=== PATIENT | male | born 1950 | race Asian ===

== ENCOUNTER 2019-07-28 14:15 | IRF | payer OTHER, SELFPAY ==
[2019-07-28 14:15] VITALS: BP 141/58; PULSE 76; RESP 20; TEMP 36.6; O2SAT 100; BMI 29.0
--- NOTE | 2019-07-28 14:50 | ADMGEN ---
This patient, Conrad Rondon, was admitted to [facility] Room 218-01. Patient/family oriented to hospital policies and general routines including ID bracelet, bed and alarms, visiting hours, pain management, procedures, bathroom and other care routines, personal items, smoking policy, room service/diet, and visiting hours. Valuables list has been completed. Information on how to activate the Rapid Response Team has been discussed. Patient/Family are encouraged to report perceived risks to care and to ask questions if they do not understand what they are told or what they should do.
[2019-07-28 16:46] LABS: Glucose Point of Care 126 (65-105)
[2019-07-28 17:11] VITALS: BMI 29.0
[2019-07-28] MEDS: GABAPENTIN 100 MG CAPSULE PO (19:38)
[2019-07-28] MEDS: levETIRAcetam 500 MG TABLET 1000 MG PO (19:38)
[2019-07-28] MEDS: DOCUSATE SODIUM 100 MG CAPSULE PO (19:38)
[2019-07-28 20:00] VITALS: PULSE 76; RESP 20; O2SAT 100
[2019-07-28] MEDS: FAMOTIDINE 20 MG TABLET PO (21:15)
[2019-07-28] MEDS: HEPARIN SODIUM 5,000 UNITS/ML VIAL 5000 UNITS SUB-Q (21:18)
[2019-07-28] MEDS: DEXAMETHASONE 2 MG TABLET PO (21:20)
[2019-07-28 22:00] VITALS: BP 156/80; PULSE 72; RESP 18; TEMP 36.2; O2SAT 99
[2019-07-28 22:21] LABS: Glucose Point of Care 267 (65-105)
[2019-07-28 23:10] VITALS: TEMP 36.2
[2019-07-28] MEDS: ACETAMINOPHEN 325 MG TABLET 650 MG PO (23:10)
--- NOTE | 2019-07-29 03:57 | PC.NURSE ---
Patient has been awake all night. states he cannot sleep. gets up and sits in chair, then goes back to bed, then up again in the chair and then he wants to walk and we walk in the hallway. patient walked from his room all the way to room 224 and walked back to his room in 218. states just can not sleep. right now he is up in the chair again and has call light at his side. states he has called his and asked her to bring coffee before 0600. will continue to monitor.
[2019-07-29 05:17] LABS: Hematocrit 31.3 % (42.0-52.0); Mean Corpuscular HGB Conc 31.9 g/dl (32-36); Mean Corpuscular Hemoglobin 25.8 pg (26-34); Mean Corpuscular Volume 80.9 fl (80-100); Mean Platelet Volume 9.3 fl (7.4-10.4); Platelet Count Result 483 k/mm3 (150-375); Red Blood Count 3.87 M/mm3 (4.6-6.20); Red Cell Distribution Width 14.8 % (11.5-14.5); White Blood Count 7.9 K/mm3 (4.5-10.0)
[2019-07-29 05:23] LABS: Hemoglobin A1C 7.5 % (<5.7)
[2019-07-29 05:29] LABS: Blood Urea Nitrogen 18 mg/dL (9-20); Calcium 8.9 mg/dL (8.4-10.2); Carbon Dioxide 28 mmol/L (22-30); Chloride 102 mmol/L (98-107); Estimated CRCL calculation 54 ml/min; Estimated Glomerular Filt Rate > 60; Glucose 148 mg/dL (75-110); Potassium 4.4 mmol/L (3.4-5.0); Sodium 136 mmol/L (137-145)
[2019-07-29 05:56] LABS: Band Neutrophils Percent 3 % (0-6); Lymphocytes Absolute Manual 1.42 K/mm3 (1.1-4.5); Monocytes Absolute Manual 0.63 K/mm3 (0.1-0.90); Monocytes Percent Manual 8 % (3-9); Neutrophils Absolute Manual 5.84 K/mm3 (1.3-6.7); Neutrophils Percent Manual 71 % (46-73); Nucleated Red Blood Cells 2 %; Total Cells Counted 100
[2019-07-29 05:57] LABS: Hypochromasia 1+ (NORMAL); Large Platelets Present; Platelet Estimate Adequate (Adequate)
[2019-07-29 05:58] LABS: Microcytosis 1+ (NORMAL)
[2019-07-29 06:00] VITALS: BP 150/76; PULSE 76; RESP 18; TEMP 36.5; O2SAT 100
[2019-07-29] MEDS: DEXAMETHASONE 2 MG TABLET PO ×3 (06:55→21:13)
[2019-07-29 07:35] LABS: Glucose Point of Care 133 (65-105)
[2019-07-29] MEDS: INSULIN ASPART (*BKC) 100 UNITS/ML SUB-Q ×4 (08:59→17:20)
[2019-07-29] MEDS: INSULIN HUMAN NPH (*BKC) 100 UNITS/ML 15 UNITS SUB-Q ×2 (09:02→17:19)
[2019-07-29] MEDS: DOCUSATE SODIUM 100 MG CAPSULE PO ×2 (09:04→17:18)
[2019-07-29] MEDS: FAMOTIDINE 20 MG TABLET PO ×2 (09:05→21:14)
[2019-07-29] MEDS: HEPARIN SODIUM 5,000 UNITS/ML VIAL 5000 UNITS SUB-Q ×2 (09:05→21:12)
[2019-07-29] MEDS: GABAPENTIN 100 MG CAPSULE PO ×3 (09:05→17:18)
[2019-07-29] MEDS: levETIRAcetam 500 MG TABLET 1000 MG PO ×2 (09:05→17:21)
[2019-07-29] MEDS: ROSUVASTATIN 5 MG TABLET PO (09:06)
[2019-07-29] MEDS: SPIRONOLACTONE 25 MG TABLET PO (09:06)
[2019-07-29] MEDS: polyethylene glycoL 3350 17 GM POWD.PACK PO (09:06)
[2019-07-29] MEDS: lisinopriL 20 MG TABLET PO (09:06)
--- NOTE | 2019-07-29 09:30 | WPDREHABHP ---
H&P: HPI History of Present Illness Chief complaint: Brain mass Narrative: Conrad Rondon is a 69 year old maleHISTORY OF PRESENT ILLNESS: The patient's primary rehab impairment category is brain dysfunction/ nontraumatic The etiologic diagnosis is right frontal extra-axial mass with brain compression and cerebral edema I saw this patient [id number] on of July 29, 2019 at 9:30 a.m. The patient is a 68-year-old right-handed white male with a past medical history of for retention, hyperlipidemia and diabetes mellitus type 2 who presented to [facility] why EMS on July 20, 2019 with altered mental status and progressive left-sided weakness. On the night of the July 18, 2021 OT the patient had an episode of urinary incontinence in bed around midnight. His family moved him to the couch and upon waking in the morning he was unable to get up due to the weakness on his left side. They called EMS and he was taken to [facility]. He received 10 milligram of dexamethasone IV in the emergency department with no significant improvement. CT of the head demonstrated 6 x 4 centimeter right frontal mass with surrounding vasogenic edema and 1.7 centimeter midline shift. Non he was transferred to [facility] for neurosurgery consultation. He was admitted to the Neurosurgery service and it continued and dexamethasone every 4 hours 4 milligram patient was also started on Keppra which he is receiving at 1 gram b.i.d. for seizure prophylaxis a CT of the chest/ abdomen pelvis was obtained for staging but there were no findings malignancy. Patient required sedation and intubation for her brain tumor protocol MRI to evaluate the mass. It was a difficult intubation and was transferred to neuro ICU following the MRI for extubation prevent he was successfully extubated to 2 liters of nasal cannula oxygen. Neurosurgery saw the patient recommended surgical intervention. MRI of the brain revealed right frontal convexity extra-axial mass with areas of central necrosis, most consistent with meningioma. He underwent a craniotomy with nearly across resection on July 23, [address] Toby urena. Postoperatively he was monitored in the ICU. He has experienced acute blood-loss anemia, swelling at the craniotomy site extending to his right eye, hypertension and hypocalcemia. The patient is hemodynamically stable his incision was covered with a dressing and head wrap was placed along with elevation of the head of bed to reduce swelling. His hypertension is being controlled with oral medication and being monitored. Electrolytes are repeated or repeated as necessary Therapy was initiated at the acute care facility and the patient transferred to us from [facility] on July 28, 2019 on FALLS OR SURGERIES: The patient has had no major surgeries in the 100 days prior to admission. They had falls in the past year. They had falls with injury in the past year. PAST MEDICAL HISTORY: hypertension hyperlipidemia type 2 diabetes mellitus. PAST SURGICAL HISTORY: None except the present 1 SOCIAL HISTORY: patient lives with his , daughter and grandchildren in a 1 level home with the basement. The 3 steps to enter. Patient has a daughter who reported that he was independent prior. His is available to the patient 24 hour 7 read daughter works but makes her self available as necessary. Patient's primary language is laosion. He and stents most angulation was able to answer the questions from the is filter screen cleaner freed his and daughter planned to alternate and stay with him different rehab [place] his daughter is available from translation by phone if necessary. He has been participating with the rehab acute care side without need of a electronic test technician. He reported falls prior to admission he has had major surgery this admission treated he is a former smoker however no alcohol or drug use FAMILY HISTORY: ther
[2019-07-29 11:14] VITALS: BMI 29.0
[2019-07-29 11:49] LABS: Glucose Point of Care 226 (65-105)
[2019-07-29 14:00] VITALS: BP 141/57; PULSE 76; RESP 20; TEMP 36.5; O2SAT 99
[2019-07-29 17:01] LABS: Glucose Point of Care 115 (65-105)
--- NOTE | 2019-07-29 19:52 | PC.NURSE ---
Late entry: Called daughter Елена this morning regarding her father being restless and trying to get up on own during the night and also turning off the bed alarm. Asked if she could have a talk with him and she agreed, as well as the staff explaining his safety being priority to us. He stated understanding and as well as the daughter. He did well during the day using the call light appropriately, and we also moved him closer to the nurses station for his safety. Family aware and agreeable. Will continue to monitor.
[2019-07-29 21:11] LABS: Glucose Point of Care 136 (65-105)
[2019-07-29 22:00] VITALS: BP 133/69; PULSE 67; RESP 18; TEMP 36.6; O2SAT 99
[2019-07-29] MEDS: ACETAMINOPHEN 325 MG TABLET 650 MG PO (23:17)
[2019-07-30 02:01] LABS: Glucose Point of Care 141 (65-105)
[2019-07-30 06:00] VITALS: BP 129/77; PULSE 66; RESP 16; TEMP 35.7; O2SAT 98
[2019-07-30] MEDS: DEXAMETHASONE 2 MG TABLET PO ×3 (06:27→21:13)
[2019-07-30 06:45] LABS: Glucose Point of Care 129 (65-105)
[2019-07-30] MEDS: lisinopriL 20 MG TABLET PO (08:22)
[2019-07-30] MEDS: SPIRONOLACTONE 25 MG TABLET PO (08:22)
[2019-07-30] MEDS: levETIRAcetam 500 MG TABLET 1000 MG PO ×2 (08:22→17:16)
[2019-07-30] MEDS: GABAPENTIN 100 MG CAPSULE PO ×3 (08:22→17:16)
[2019-07-30] MEDS: FAMOTIDINE 20 MG TABLET PO ×2 (08:22→21:13)
[2019-07-30] MEDS: INSULIN HUMAN NPH (*BKC) 100 UNITS/ML 15 UNITS SUB-Q ×2 (08:22→17:16)
[2019-07-30] MEDS: ROSUVASTATIN 5 MG TABLET PO (08:22)
[2019-07-30] MEDS: polyethylene glycoL 3350 17 GM POWD.PACK PO (08:22)
[2019-07-30] MEDS: DOCUSATE SODIUM 100 MG CAPSULE PO ×2 (08:22→17:16)
[2019-07-30] MEDS: HEPARIN SODIUM 5,000 UNITS/ML VIAL 5000 UNITS SUB-Q ×2 (08:23→21:13)
[2019-07-30] MEDS: INSULIN ASPART (*BKC) 100 UNITS/ML SUB-Q ×3 (08:23→17:16)
[2019-07-30 11:45] LABS: Glucose Point of Care 128 (65-105)
--- NOTE | 2019-07-30 12:10 | RPD ---
INDIVIDUALIZED PLAN OF CARE FOR Conrad Rondon Brief Synthesis of Pre-Admission Screen, Post-Admission Evaluation and Therapy Evaluations: The patient presents to rehab with right frontal extra-axial mass with brain compression and cerebral edema. Comorbidities include status post right fronto-temporal craniotomy with biopsy and resection of a large underlying meningioma, acute postoperative pain, acute blood loss anemia, hypertension, diabetes mellitus with hyperglycemia, hypocalcemia. The patient requires physician services for neurology services, medical oversight, and coordination of care. Emotional needs will be monitored as depression is a common sequelae of stroke. The patient needs physician monitoring and treatment of anemia, perioperative blood loss, monitoring for adverse reactions to new medications, monitoring of infection, hypertension, and electrolyte imbalances. The patient requires nursing services for frequent neuro checks, anticoagulation therapy, medication management and education, pressure relief and skin care management, monitoring of labs, bowel and bladder training, diabetes management and education, and fall/safety precautions. Deficits include:ADLs, Balance, Cognition, Endurance, Mobility, ROM, Safety, Strength, Transfers Fire Sprinkler Inspector/Case Management for: Discharge Planning and Patient/Family Counseling Physical Therapy: 5 days per week for 90 minutes. Treatments may include: Therapeutic Exercise, Gait Training, Neuromuscular Re-education, Transfer Training, Community Reintegration, Bed Mobility, Patient/Family Education, Wheelchair Mobility Group Therapy/Concurrent Therapy Rationales: -Improve attention span during functional activities in a distracted environment. -Enhance problem solving and/or adequate judgment skills during functional activities in a distracted environment. -Promote increased safety awareness in a distracted environment to reduce fall risk with functional tasks, transfers, and ambulation to allow a more safe, self-sufficient return to the home environment. -Improve dynamic balance skills to promote safety and independence with functional activities in a distracted environment for maximum gain. Occupational Therapy: 5 days per week for 90 minutes. Treatments may include: Therapeutic Exercise, Therapeutic Activity, Cognitive Training, Self-Care Transfer Training, Community Reintegration, Home Management, Patient/Family Education, Wheelchair Mobility Training, Energy Conservation Training Group Therapy/Concurrent Therapy Rationales: -Allow therapist to observe and teach generalization and carry-over of skills learned in individual therapy. -Enhance problem solving and sequencing skills during therapeutic activities in a distracted environment. -Promote increased safety awareness in a realistic setting to reduce fall risk with functional tasks due to visual and verbal distractions. -Increase functional level with ADLs, ADL transfers and use of adaptive equipment through therapeutic activities with others while promoting safety to allow a more safe, self-sufficient return home. Medical Prognosis: Good Anticipated Length of Stay: 12 days Rehab Goals: Eating Goal: 06-Independent Oral Hygiene Goal: 06-Independent Toileting Hygiene Goal: 06-Independent Shower/Bathe Self Goal: 04-Supervision or Touching Assistance Upper Body Dressing Goal: 06-Independent Lower Body Dressing Goal: 06-Independent Putting On/Taking Off Footwear Goal: 06-Independent Rolling Left and Right Goal: 06-Independent Sit to Lying Goal: 06-Independent Lying to Sitting on Side of Bed Goal: 06-Independent Sit to Stand Goal: 06-Independent Chair/[id number] Transfer Goal: 06-Independent Toilet Transfer Goal: 06-Independent Car Transfer Goal: 06-Independent Walk 10' Goal: 06-Independent Walk 50' with Two Turns Goal: 06-Independent Walk 150' Goal: 06-Independent Walk 10' on Uneven Surface Goal: 06-Independent 1 Step (Curb) Go
[2019-07-30 14:00] VITALS: BP 100/54; PULSE 76; RESP 20; TEMP 36.5; O2SAT 100
[2019-07-30 17:01] LABS: Glucose Point of Care 163 (65-105)
[2019-07-30 20:49] VITALS: BP 118/72; PULSE 74; RESP 18; TEMP 36.8; O2SAT 98
[2019-07-30 21:13] LABS: Glucose Point of Care 192 (65-105)
[2019-07-31] MEDS: DEXAMETHASONE 2 MG TABLET PO ×3 (05:38→21:11)
[2019-07-31] MEDS: ACETAMINOPHEN 325 MG TABLET 650 MG PO (05:39)
[2019-07-31 06:00] VITALS: BP 131/65; PULSE 66; RESP 16; TEMP 36.3; O2SAT 98
[2019-07-31 06:59] LABS: Glucose Point of Care 142 (65-105)
[2019-07-31] MEDS: INSULIN ASPART (*BKC) 100 UNITS/ML SUB-Q ×2 (09:23→17:36)
[2019-07-31] MEDS: FAMOTIDINE 20 MG TABLET PO ×2 (09:29→21:11)
[2019-07-31] MEDS: HEPARIN SODIUM 5,000 UNITS/ML VIAL 5000 UNITS SUB-Q ×2 (09:29→21:11)
[2019-07-31] MEDS: levETIRAcetam 500 MG TABLET 1000 MG PO ×2 (09:29→17:27)
[2019-07-31] MEDS: DOCUSATE SODIUM 100 MG CAPSULE PO ×2 (09:29→17:27)
[2019-07-31] MEDS: GABAPENTIN 100 MG CAPSULE PO ×3 (09:29→21:11)
[2019-07-31] MEDS: INSULIN HUMAN NPH (*BKC) 100 UNITS/ML 15 UNITS SUB-Q ×2 (09:30→17:34)
[2019-07-31] MEDS: ROSUVASTATIN 5 MG TABLET PO (09:30)
[2019-07-31] MEDS: SPIRONOLACTONE 25 MG TABLET PO (09:30)
[2019-07-31] MEDS: lisinopriL 20 MG TABLET PO (09:30)
--- NOTE | 2019-07-31 12:08 | WPDNEURORHBP ---
Subjective Date/time seen: 07/31/19 12:08 Review of Systems Review of Systems: All systems reviewed & are unremarkable except as noted in HPI and below Functional Status Ambulation Ability Ability to Ambulate 10 Feet: Standby Assistance Ability to Ambulate 50 Feet With 2 Turns: Contact Guard Ability to Ambulate 150 Feet: Contact Guard Ambulation Assistive Devices: Walker, Wheeled Transfers Ability Ability to Transfer In/Out of Chair: Standby Assistance Exam Const: General: cooperative and no acute distress Nutritional Appearance: average body habitus Orientation/consciousness: oriented to person and oriented to place Eyes: General: appearance normal, both eyes and all related structures Alignment and Position: alignment normal Periorbital: periorbital findings normal Eyelids: eyelids normal Sclera: sclerae normal Cornea: corneas normal Pupils: Equal, round and reactive pupils present EOM: EOMs intact bilaterally Direct Ophthalmoscopy: normal light reflex Neck: Neck: full ROM Cardio: Rate: regular rate Rhythm: regular rhythm Neuro: General: oriented to person, oriented to place, oriented to time, moves all extremities and no focal motor deficits (left sided deficit) Cranial nerves: Yes Equal, round and reactive pupils present, Yes Nystagmus not present, Yes Midline tongue present, Yes Normal gag reflex present, Yes Symmetric palate elevation present, Yes Ability to bilaterally rotate head present and Yes Ability to bilaterally elevate shoulders present Speech: normal speech (slow) Motor exam (neuro): 5/5 motor strength present throughout (left hemiparesis) Deep tendon reflexes (DTR's): Right triceps reflex intensity grade: 1+, Left triceps reflex intensity grade: 2+, Rt Biceps (C5, C6): 1+, Left biceps reflex intensity grade: 2+, Right brachioradialis reflex intensity grade: 1+, Left brachioradialis reflex intensity grade: 2+, Right patellar reflex intensity grade: 1+, Left patellar reflex intensity grade: 2+, Right ankle reflex intensity grade: 1+ and Left ankle reflex intensity grade: 2+ Plantar Reflex Responses: downgoing: right and upgoing (positive Babinski): left Romberg Test: Positive Psych: Appearance: grossly normal Objective Data Vital Signs Vital Signs: Vital Signs - 24 hr 07/30/19 14:00 07/30/19 20:49 07/31/19 06:00 Temperature 36.5 C 36.8 C 36.3 C L Pulse Rate 76 74 66 Respiratory Rate 20 18 16 Blood Pressure 100/54 L 118/72 131/65 Pulse Oximetry 100 98 98 Intake/Output Intake/Output: Intake & Output 07/28/19 07/29/19 07/30/19 07/31/19 23:59 23:59 23:59 23:59 Intake Total 240 960 840 400 Balance 240 960 840 400 Meds/Results Medications: Active Medications Generic Name Dose Route Start Last Admin Trade Name Freq PRN Reason Stop Dose Admin Acetaminophen 650 mg 07/28/19 18:04 07/31/19 05:39 Tylenol Tablet PO 650 mg PRN PRN Administration Pain Hydrocodone Bitart/Acetaminophen 1 tab 07/30/19 01:53 07/30/19 22:23 [place] 5-325 Mg PO 1 tab Q4H PRN Administration Pain Rated 4-6 Bisacodyl 10 mg 07/28/19 18:04 Dulcolax Tab PO DAILY PRN Constipation Bisacodyl 10 mg 07/28/19 18:04 Dulcolax Suppository RECTAL DAILY PRN Constipation Dexamethasone 2 mg 07/28/19 22:00 07/31/19 05:38 Dexamethasone Po PO 07/31/19 14:01 2 mg Q8HR LINDA Administration Dexamethasone 2 mg 07/31/19 22:00 Dexamethasone Po PO 08/03/19 10:01 Q12H LINDA Dexamethasone 2 mg 08/04/19 09:00 Dexamethasone Po PO 08/06/19 09:01 Q24H LINDA Dexamethasone 1 mg 08/07/19 09:00 Dexamethasone Po PO 08/09/19 09:01 DAILY LINDA Dextrose 12.5 gm 07/28/19 18:03 Dextrose 50% Syringe IV PUSH PRN PRN Hypoglycemia Protocol Docusate Sodium 100 mg 07/28/19 17:00 07/31/19 09:29 Colace Capsule PO 100 mg BID LINDA Administration Famotidine 20 mg 07/28/19 21:00 07/31/19 09:29 Pepcid PO 20 mg Q12
[2019-07-31 12:32] LABS: Glucose Point of Care 109 (65-105)
[2019-07-31 14:00] VITALS: BP 123/69; PULSE 82; RESP 20; TEMP 36.7; O2SAT 98
[2019-07-31] MEDS: polyethylene glycoL 3350 17 GM POWD.PACK PO (17:27)
[2019-07-31 17:37] LABS: Glucose Point of Care 164 (65-105)
[2019-07-31 21:21] LABS: Glucose Point of Care 227 (65-105)
[2019-07-31 22:00] VITALS: BP 103/45; PULSE 118; RESP 16; TEMP 36.7; O2SAT 94
[2019-08-01 06:00] VITALS: BP 119/71; PULSE 63; RESP 16; TEMP 36.1; O2SAT 100
[2019-08-01 06:58] LABS: Glucose Point of Care 165 (65-105)
[2019-08-01] MEDS: GABAPENTIN 100 MG CAPSULE PO ×3 (09:12→17:59)
[2019-08-01] MEDS: INSULIN ASPART (*BKC) 100 UNITS/ML SUB-Q ×3 (09:12→18:00)
[2019-08-01] MEDS: HEPARIN SODIUM 5,000 UNITS/ML VIAL 5000 UNITS SUB-Q ×2 (09:12→21:02)
[2019-08-01] MEDS: FAMOTIDINE 20 MG TABLET PO ×2 (09:12→21:02)
[2019-08-01] MEDS: DOCUSATE SODIUM 100 MG CAPSULE PO ×2 (09:12→17:58)
[2019-08-01] MEDS: INSULIN HUMAN NPH (*BKC) 100 UNITS/ML 15 UNITS SUB-Q ×2 (09:13→17:59)
[2019-08-01] MEDS: levETIRAcetam 500 MG TABLET 1000 MG PO ×2 (09:13→17:59)
[2019-08-01] MEDS: lisinopriL 20 MG TABLET PO (09:13)
[2019-08-01] MEDS: polyethylene glycoL 3350 17 GM POWD.PACK PO (09:15)
[2019-08-01] MEDS: SPIRONOLACTONE 25 MG TABLET PO (09:16)
[2019-08-01] MEDS: ROSUVASTATIN 5 MG TABLET PO (09:16)
[2019-08-01] MEDS: DEXAMETHASONE 2 MG TABLET PO ×3 (09:16→21:11)
--- NOTE | 2019-08-01 12:03 | WPDNEURORHBP ---
Subjective Date/time seen: 08/01/19 12:03 Review of Systems Review of Systems: All systems reviewed & are unremarkable except as noted in HPI and below Functional Status Ambulation Ability Ability to Ambulate 10 Feet: Standby Assistance Ability to Ambulate 50 Feet With 2 Turns: Standby Assistance Ability to Ambulate 150 Feet: Standby Assistance Ambulation Assistive Devices: Cane Transfers Ability Ability to Transfer In/Out of Chair: Standby Assistance Exam Const: General: cooperative, comfortable and no acute distress Nutritional Appearance: average body habitus Orientation/consciousness: patient oriented x3 Eyes: General: appearance normal, both eyes and all related structures Alignment and Position: alignment normal Periorbital: periorbital findings normal Eyelids: eyelids normal Conjunctivae: conjunctivae normal Sclera: sclerae normal Cornea: corneas normal Pupils: Equal, round and reactive pupils present EOM: EOMs intact bilaterally Direct Ophthalmoscopy: normal light reflex Neck: Neck: full ROM and no lymphadenopathy Resp: Effort & Inspection: normal respiratory effort Auscultation: clear to auscultation bilaterally Cardio: Rate: regular rate Rhythm: regular rhythm Skin: General skin exam: no rashes or lesions noted Neuro: General: patient oriented x3 and moves all extremities Cranial nerves: Yes Nystagmus not present, Yes Midline tongue present, Yes Symmetric palate elevation present and Yes Ability to bilaterally rotate head present Cognition (Neuro): normal cognition Speech: normal speech Gait exam (Neuro): Spastic hemiparesis gait present (hemiparetic) Deep tendon reflexes (DTR's): Right triceps reflex intensity grade: 1+, Left triceps reflex intensity grade: 2+, Rt Biceps (C5, C6): 1+, Left biceps reflex intensity grade: 2+, Right brachioradialis reflex intensity grade: 1+, Left brachioradialis reflex intensity grade: 2+, Right patellar reflex intensity grade: 1+, Left patellar reflex intensity grade: 2+, Right ankle reflex intensity grade: 1+ and Left ankle reflex intensity grade: 2+ Plantar Reflex Responses: downgoing: right and upgoing (positive Babinski): left Psych: Appearance: grossly normal Objective Data Vital Signs Vital Signs: Vital Signs - 24 hr 07/31/19 14:00 07/31/19 22:00 08/01/19 06:00 Temperature 36.7 C 36.7 C 36.1 C L Pulse Rate 82 118 H 63 Respiratory Rate 20 16 16 Blood Pressure 123/69 103/45 L 119/71 Pulse Oximetry 98 94 100 Intake/Output Intake/Output: Intake & Output 07/29/19 07/30/19 07/31/19 08/01/19 23:59 23:59 23:59 23:59 Intake Total 513 920 6989 Balance 693 434 3465 Meds/Results Medications: Active Medications Generic Name Dose Route Start Last Admin Trade Name Freq PRN Reason Stop Dose Admin Acetaminophen 650 mg 07/28/19 18:04 07/31/19 05:39 Tylenol Tablet PO 650 mg PRN PRN Administration Pain Hydrocodone Bitart/Acetaminophen 1 tab 07/30/19 01:53 08/01/19 11:09 [place] 5-325 Mg PO 1 tab Q4H PRN Administration Pain Rated 4-6 Bisacodyl 10 mg 07/28/19 18:04 Dulcolax Tab PO DAILY PRN Constipation Bisacodyl 10 mg 07/28/19 18:04 Dulcolax Suppository RECTAL DAILY PRN Constipation Dexamethasone 2 mg 07/31/19 22:00 08/01/19 09:16 Dexamethasone Po PO 08/03/19 10:01 2 mg Q12H LINDA Administration Dexamethasone 2 mg 08/04/19 09:00 Dexamethasone Po PO 08/06/19 09:01 Q24H LINDA Dexamethasone 1 mg 08/07/19 09:00 Dexamethasone Po PO 08/09/19 09:01 DAILY LINDA Dextrose 12.5 gm 07/28/19 18:03 Dextrose 50% Syringe IV PUSH PRN PRN Hypoglycemia Protocol Docusate Sodium 100 mg 07/28/19 17:00 08/01/19 09:12 Colace Capsule PO 100 mg BID LINDA Administration Famotidine 20 mg 07/28/19 21:00 08/01/19 09:12 Pepcid PO 20 mg Q12HR LINDA Administration Gabapentin 100 mg 07/28/19 17:00 08/01/19 09:12 Neurontin PO 100 mg
[2019-08-01 12:07] LABS: Glucose Point of Care 95 (65-105)
[2019-08-01 14:00] VITALS: BP 109/56; PULSE 70; RESP 18; TEMP 36.6; O2SAT 98
[2019-08-01 17:01] LABS: Glucose Point of Care 145 (65-105)
[2019-08-01 21:18] LABS: Glucose Point of Care 107 (65-105)
[2019-08-01 22:00] VITALS: BP 131/57; PULSE 69; RESP 20; TEMP 36.4; O2SAT 99
[2019-08-02 06:00] VITALS: BP 103/59; PULSE 67; RESP 20; TEMP 36.4; O2SAT 98
[2019-08-02 07:12] LABS: Glucose Point of Care 110 (65-105)
[2019-08-02] MEDS: GABAPENTIN 100 MG CAPSULE PO ×3 (09:07→17:28)
[2019-08-02] MEDS: levETIRAcetam 500 MG TABLET 1000 MG PO ×2 (09:07→17:29)
[2019-08-02] MEDS: SPIRONOLACTONE 25 MG TABLET PO (09:07)
[2019-08-02] MEDS: ROSUVASTATIN 5 MG TABLET PO (09:07)
[2019-08-02] MEDS: DOCUSATE SODIUM 100 MG CAPSULE PO ×2 (09:08→17:28)
[2019-08-02] MEDS: FAMOTIDINE 20 MG TABLET PO ×2 (09:08→21:13)
[2019-08-02] MEDS: lisinopriL 20 MG TABLET PO (09:08)
[2019-08-02] MEDS: INSULIN HUMAN NPH (*BKC) 100 UNITS/ML 15 UNITS SUB-Q ×2 (09:09→17:34)
[2019-08-02] MEDS: INSULIN ASPART (*BKC) 100 UNITS/ML SUB-Q ×3 (09:09→17:34)
[2019-08-02] MEDS: HEPARIN SODIUM 5,000 UNITS/ML VIAL 5000 UNITS SUB-Q ×2 (09:09→21:17)
[2019-08-02] MEDS: polyethylene glycoL 3350 17 GM POWD.PACK PO (09:10)
--- NOTE | 2019-08-02 09:47 | PCPTNOTE ---
Conrad Rondon was evaluated for a straight cane on 08/02/2019 by this physical therapist. The cane will resolve patient's mobility limitations and will be used for ADL's within the home. The patient can safely use the straight cane. ?The cane will resolve the patient?s mobility deficits, including high level balance deficit and impulsivity.
[2019-08-02 12:16] LABS: Glucose Point of Care 91 (65-105)
[2019-08-02 14:00] VITALS: BP 106/55; PULSE 78; RESP 20; TEMP 35.9; O2SAT 99
[2019-08-02 17:25] LABS: Glucose Point of Care 140 (65-105)
[2019-08-02] MEDS: DEXAMETHASONE 2 MG TABLET PO (21:13)
[2019-08-02] MEDS: ACETAMINOPHEN 325 MG TABLET 650 MG PO (21:25)
[2019-08-02 21:44] LABS: Glucose Point of Care 133 (65-105)
[2019-08-02 22:00] VITALS: BP 108/63; PULSE 63; RESP 20; TEMP 36.7; O2SAT 100
[2019-08-03] MEDS: ACETAMINOPHEN 325 MG TABLET 650 MG PO (05:46)
[2019-08-03 06:00] VITALS: BP 115/73; PULSE 60; RESP 18; TEMP 36.1; O2SAT 100
[2019-08-03 07:23] LABS: Glucose Point of Care 155 (65-105)
[2019-08-03] MEDS: FAMOTIDINE 20 MG TABLET PO ×2 (09:26→20:28)
[2019-08-03] MEDS: DOCUSATE SODIUM 100 MG CAPSULE PO ×2 (09:26→17:27)
[2019-08-03] MEDS: SPIRONOLACTONE 25 MG TABLET PO (09:27)
[2019-08-03] MEDS: GABAPENTIN 100 MG CAPSULE PO ×3 (09:27→17:27)
[2019-08-03] MEDS: lisinopriL 20 MG TABLET PO (09:27)
[2019-08-03] MEDS: ROSUVASTATIN 5 MG TABLET PO (09:27)
[2019-08-03] MEDS: levETIRAcetam 500 MG TABLET 1000 MG PO ×2 (09:27→17:27)
[2019-08-03] MEDS: polyethylene glycoL 3350 17 GM POWD.PACK PO (09:27)
[2019-08-03] MEDS: DEXAMETHASONE 2 MG TABLET PO (09:28)
[2019-08-03 09:37] VITALS: BP 114/56; PULSE 69; O2SAT 99
[2019-08-03] MEDS: INSULIN HUMAN NPH (*BKC) 100 UNITS/ML 15 UNITS SUB-Q ×2 (10:35→17:36)
[2019-08-03] MEDS: INSULIN ASPART (*BKC) 100 UNITS/ML SUB-Q ×3 (10:36→17:36)
[2019-08-03 11:56] LABS: Glucose Point of Care 83 (65-105)
[2019-08-03 14:00] VITALS: BP 105/52; PULSE 70; RESP 17; TEMP 36.2; O2SAT 99
--- NOTE | 2019-08-03 15:08 | WPDNEURORHBP ---
Subjective Date/time seen: 08/03/19 15:08 Interval history: this 69-year-old gentleman is here after having had a brain mass resection and doing very well in over rehab program denies any headache nausea vomiting chest pain or shortness of breath his neurological status is improving the weakness is improving in the balance is improving Review of Systems Review of Systems: All systems reviewed & are unremarkable except as noted in HPI and below Functional Status Ambulation Ability Ability to Ambulate 10 Feet: Standby Assistance Ability to Ambulate 50 Feet With 2 Turns: Standby Assistance Ability to Ambulate 150 Feet: Standby Assistance Ambulation Assistive Devices: Cane Transfers Ability Ability to Transfer In/Out of Chair: Independent Exam Const: General: comfortable and no acute distress HENMT: General nose exam: Normal nares present Mouth: Yes moist mucous membranes Eyes: General: appearance normal, both eyes and all related structures Neck: Neck: supple and no JVD Resp: Effort & Inspection: normal respiratory effort Auscultation: clear to auscultation bilaterally Cardio: Rate: regular rate Rhythm: regular rhythm GI: GI Palp: Yes Soft to palpation Auscultation: normal bowel sounds Skin: General skin exam: normal color and no rashes or lesions noted Neuro: Other: patient's mental status is normal cranial exam dong normal balance is improving weakness is improving overall picture is of significant and gradual improvement in his neurological stat Extrem: General: normal to inspection Psych: Mental Status: mental status grossly normal Objective Data Vital Signs Vital Signs: Vital Signs - 24 hr 08/02/19 22:00 08/03/19 06:00 08/03/19 09:37 Temperature 36.7 C 36.1 C L Pulse Rate 63 60 69 Respiratory Rate 20 18 Blood Pressure 108/63 115/73 114/56 L Pulse Oximetry 100 100 99 08/03/19 14:00 Temperature 36.2 C L Pulse Rate 70 Respiratory Rate 17 Blood Pressure 105/52 L Pulse Oximetry 99 Intake/Output Intake/Output: Intake & Output 07/31/19 08/01/19 08/02/19 08/03/19 23:59 23:59 23:59 23:59 Intake Total 1000 700 600 480 Balance 1000 700 600 480 Meds/Results Medications: Active Medications Generic Name Dose Route Start Last Admin Trade Name Freq PRN Reason Stop Dose Admin Acetaminophen 650 mg 07/28/19 18:04 08/03/19 05:46 Tylenol Tablet PO 650 mg PRN PRN Administration Pain Hydrocodone Bitart/Acetaminophen 1 tab 07/30/19 01:53 08/03/19 01:31 [place] 5-325 Mg PO 1 tab Q4H PRN Administration Pain Rated 4-6 Bisacodyl 10 mg 07/28/19 18:04 Dulcolax Tab PO DAILY PRN Constipation Bisacodyl 10 mg 07/28/19 18:04 Dulcolax Suppository RECTAL DAILY PRN Constipation Dexamethasone 2 mg 08/04/19 09:00 Dexamethasone Po PO 08/06/19 09:01 Q24H LINDA Dexamethasone 1 mg 08/07/19 09:00 Dexamethasone Po PO 08/09/19 09:01 DAILY [facility] Dextrose 12.5 gm 07/28/19 18:03 Dextrose 50% Syringe IV PUSH PRN PRN Hypoglycemia Protocol Docusate Sodium 100 mg 07/28/19 17:00 08/03/19 09:26 Colace Capsule PO 100 mg BID LINDA Administration Famotidine 20 mg 07/28/19 21:00 08/03/19 09:26 Pepcid PO 20 mg Q12HR LINDA Administration Gabapentin 100 mg 07/28/19 17:00 08/03/19 13:25 Neurontin PO 100 mg TID LINDA Administration Glucagon 1 mg 07/28/19 18:03 Glucagon For Inj IM PRN PRN Hypoglycemia Protocol Glucose 15 gm 07/28/19 18:03 Glutose 15 PO PRN PRN Hypoglycemia Protocol Dextrose 1,000 mls @ 100 mls/hr 07/28/19 18:03 Dextrose 5% 1,000 Ml IVPB PRN PRN Hypoglycemia Protocol Insulin Aspart 2 - 5 units 07/29/19 08:00 08/03/19 11:59 Novolog SUB-Q Not Given TIDWM LINDA Protocol Insulin Aspart 5 units 07/29/19 09:00 08/03/19 13:25 Novolog SUB-Q 5 units TID LINDA Administration Insulin Human FAMILY SERVICES COORDINATOR
[2019-08-03 17:09] LABS: Glucose Point of Care 118 (65-105)
[2019-08-03 21:01] LABS: Glucose Point of Care 132 (65-105)
[2019-08-03 22:00] VITALS: BP 125/53; PULSE 70; RESP 18; TEMP 36.9; O2SAT 98
[2019-08-04 06:00] VITALS: BP 120/62; PULSE 61; RESP 18; TEMP 36.4; O2SAT 100
[2019-08-04 06:56] LABS: Glucose Point of Care 116 (65-105)
[2019-08-04] MEDS: INSULIN HUMAN NPH (*BKC) 100 UNITS/ML 15 UNITS SUB-Q ×2 (07:22→16:55)
[2019-08-04] MEDS: INSULIN ASPART (*BKC) 100 UNITS/ML SUB-Q ×3 (07:22→16:55)
[2019-08-04] MEDS: ROSUVASTATIN 5 MG TABLET PO (08:43)
[2019-08-04] MEDS: lisinopriL 20 MG TABLET PO (08:43)
[2019-08-04] MEDS: DEXAMETHASONE 2 MG TABLET PO (08:43)
[2019-08-04] MEDS: SPIRONOLACTONE 25 MG TABLET PO (08:43)
[2019-08-04] MEDS: polyethylene glycoL 3350 17 GM POWD.PACK PO (08:43)
[2019-08-04] MEDS: DOCUSATE SODIUM 100 MG CAPSULE PO ×2 (08:43→16:54)
[2019-08-04] MEDS: levETIRAcetam 500 MG TABLET 1000 MG PO ×2 (08:43→16:54)
[2019-08-04] MEDS: FAMOTIDINE 20 MG TABLET PO ×2 (08:43→20:32)
[2019-08-04] MEDS: GABAPENTIN 100 MG CAPSULE PO ×3 (08:43→16:53)
[2019-08-04 11:57] LABS: Glucose Point of Care 105 (65-105)
--- NOTE | 2019-08-04 12:33 | WPDNEURORHBP ---
Subjective Date/time seen: 08/04/19 12:33 this 69-year-old gentleman is here after having had bifrontal craniotomy for the brain mass the morgan final pathology will be discussed with the patient by the surgeons who operated on him the patient is doing very well the left-sided weakness is improving generalized weakness is improving his denies any headache nausea vomiting chest pain shortness of breath fever chills or sore throat Review of Systems Review of Systems: All systems reviewed & are unremarkable except as noted in HPI and below Functional Status Ambulation Ability Ability to Ambulate 10 Feet: Standby Assistance Ability to Ambulate 50 Feet With 2 Turns: Standby Assistance Ability to Ambulate 150 Feet: Standby Assistance Ambulation Assistive Devices: Cane Transfers Ability Ability to Transfer In/Out of Chair: Independent Exam Const: General: comfortable and no acute distress HENMT: General nose exam: Normal nares present Mouth: Yes moist mucous membranes Other: the site of the craniotomy bifrontal is clean and healthy does sutures have been removed to no drainage is noted Eyes: General: appearance normal, both eyes and all related structures Neck: Neck: supple and no JVD Resp: Effort & Inspection: normal respiratory effort Auscultation: clear to auscultation bilaterally Cardio: Rate: regular rate Rhythm: regular rhythm GI: GI Palp: Yes Soft to palpation Auscultation: normal bowel sounds Skin: General skin exam: normal color and no rashes or lesions noted Neuro: Other: patient is awake alert of the Suze to time place % speech and language functions are normal cranial examination normal weakness on the left side has significantly improved is walking with some assistance balance is better and the patient is doing remarkably well neurologically and moving forward in the rehab Extrem: General: normal to inspection Psych: Mental Status: mental status grossly normal Objective Data Vital Signs Vital Signs: Vital Signs - 24 hr 08/03/19 14:00 08/03/19 22:00 08/04/19 06:00 Temperature 36.2 C L 36.9 C 36.4 C Pulse Rate 70 70 61 Respiratory Rate 17 18 18 Blood Pressure 105/52 L 125/53 L 120/62 Pulse Oximetry 99 98 100 Intake/Output Intake/Output: Intake & Output 08/01/19 08/02/19 08/03/19 08/04/19 23:59 23:59 23:59 23:59 Intake Total 700 600 720 480 Balance 700 600 720 480 Meds/Results Medications: Active Medications Generic Name Dose Route Start Last Admin Trade Name Freq PRN Reason Stop Dose Admin Acetaminophen 650 mg 07/28/19 18:04 08/03/19 05:46 Tylenol Tablet PO 650 mg PRN PRN Administration Pain Hydrocodone Bitart/Acetaminophen 1 tab 07/30/19 01:53 08/04/19 07:27 [place] 5-325 Mg PO 1 tab Q4H PRN Administration Pain Rated 4-6 Bisacodyl 10 mg 07/28/19 18:04 Dulcolax Tab PO DAILY PRN Constipation Bisacodyl 10 mg 07/28/19 18:04 Dulcolax Suppository RECTAL DAILY PRN Constipation Dexamethasone 2 mg 08/04/19 09:00 08/04/19 08:43 Dexamethasone Po PO 08/06/19 09:01 2 mg Q24H LINDA Administration Dexamethasone 1 mg 08/07/19 09:00 Dexamethasone Po PO 08/09/19 09:01 DAILY LINDA Dextrose 12.5 gm 07/28/19 18:03 Dextrose 50% Syringe IV PUSH PRN PRN Hypoglycemia Protocol Docusate Sodium 100 mg 07/28/19 17:00 08/04/19 08:43 Colace Capsule PO 100 mg BID LINDA Administration Famotidine 20 mg 07/28/19 21:00 08/04/19 08:43 Pepcid PO 20 mg Q12HR LINDA Administration Gabapentin 100 mg 07/28/19 17:00 08/04/19 12:12 Neurontin PO 100 mg TID LINDA Administration Glucagon 1 mg 07/28/19 18:03 Glucagon For Inj IM PRN PRN Hypoglycemia Protocol Glucose 15 gm 07/28/19 18:03 Glutose 15 PO PRN PRN Hypoglycemia Protocol Dextrose 1,000 mls @ 100 mls/hr 07/28/19 18:03 Dextrose 5% 1,000 Ml IVPB PRN PRN Hypoglycemia
[2019-08-04 14:00] VITALS: BP 111/55; PULSE 82; RESP 17; TEMP 36.1; O2SAT 99
[2019-08-04 16:52] LABS: Glucose Point of Care 140 (65-105)
[2019-08-04 20:35] LABS: Glucose Point of Care 146 (65-105)
[2019-08-04 21:29] VITALS: BP 110/56; PULSE 67; RESP 20; TEMP 36.1; O2SAT 99
[2019-08-05 05:03] LABS: Basophils Percent Auto 0.4 % (0.2-1.2); Eosinophils Absolute Auto 0.1 K/mm3 (0-0.3); Eosinophils Percent Auto 1.1 % (0-4.4); Hematocrit 35.8 % (42.0-52.0); Hemoglobin 11.5 g/dL (14.0-18.0); Immature Granulocyte Absolute 0.05 K/mm3 (0.00-0.031); Immature Granulocyte Percent A 0.7 % (0-0.5); Lymphocytes Percent Auto 21.9 % (18.3-44.2); Mean Corpuscular HGB Conc 32.1 g/dl (32-36); Mean Corpuscular Hemoglobin 26.4 pg (26-34); Mean Corpuscular Volume 82.1 fl (80-100); Mean Platelet Volume 8.8 fl (7.4-10.4); Monocytes Absolute Auto 0.5 K/mm3 (0.1-0.6); Monocytes Percent Auto 7.1 % (2.6-8.5); Neutrophils Percent Auto 68.8 % (45.5-73.1); Platelet Count Result 412 k/mm3 (150-375); Red Blood Count 4.36 M/mm3 (4.6-6.20); Red Cell Distribution Width 15.2 % (11.5-14.5); White Blood Count 7.3 K/mm3 (4.5-10.0)
[2019-08-05 06:00] VITALS: BP 130/63; PULSE 72; RESP 20; TEMP 36.2; O2SAT 100
[2019-08-05] MEDS: ACETAMINOPHEN 325 MG TABLET 650 MG PO ×2 (06:32→22:17)
[2019-08-05 06:52] LABS: Glucose Point of Care 114 (65-105)
[2019-08-05 08:00] VITALS: PULSE 72; RESP 20; O2SAT 100
[2019-08-05] MEDS: DOCUSATE SODIUM 100 MG CAPSULE PO ×2 (09:00→17:01)
[2019-08-05] MEDS: levETIRAcetam 500 MG TABLET 1000 MG PO ×2 (09:00→17:02)
[2019-08-05] MEDS: DEXAMETHASONE 2 MG TABLET PO (09:00)
[2019-08-05] MEDS: FAMOTIDINE 20 MG TABLET PO ×2 (09:00→20:08)
[2019-08-05] MEDS: polyethylene glycoL 3350 17 GM POWD.PACK PO (09:01)
[2019-08-05] MEDS: SPIRONOLACTONE 25 MG TABLET PO (09:01)
[2019-08-05] MEDS: ROSUVASTATIN 5 MG TABLET PO (09:01)
[2019-08-05] MEDS: GABAPENTIN 100 MG CAPSULE PO ×3 (09:01→17:01)
[2019-08-05] MEDS: lisinopriL 20 MG TABLET PO (09:01)
[2019-08-05] MEDS: INSULIN ASPART (*BKC) 100 UNITS/ML SUB-Q (09:03)
[2019-08-05 09:04] LABS: Blood Urea Nitrogen 19 mg/dL (9-20); Calcium 8.7 mg/dL (8.4-10.2); Carbon Dioxide 26 mmol/L (22-30); Chloride 96 mmol/L (98-107); Estimated CRCL calculation 54 ml/min; Estimated Glomerular Filt Rate > 60; Glucose 200 mg/dL (75-110); Potassium 4.2 mmol/L (3.4-5.0); Sodium 131 mmol/L (137-145)
[2019-08-05] MEDS: INSULIN HUMAN NPH (*BKC) 100 UNITS/ML 15 UNITS SUB-Q (09:04)
--- NOTE | 2019-08-05 11:03 | WPDNEURORHBP ---
Subjective Date/time seen: 08/05/19 11:03 Interval history: this 69-year-old gentleman is here after having had bifrontal craniotomy for relatively larger mass and doing fairly well the left-sided hemiparesis has improved and the discharge planning is for tomorrow the patient was not taking any insulin at home and this examiner has to decide while he is on is still dexamethasone whether not he should go on the insulin or should be switch him over to oral hypoglycemic agents patient overall is doing remarkably well and will be discharged tomorrow with home health to follow Review of Systems Review of Systems: All systems reviewed & are unremarkable except as noted in HPI and below Functional Status Ambulation Ability Ability to Ambulate 10 Feet: Standby Assistance Ability to Ambulate 50 Feet With 2 Turns: Standby Assistance Ability to Ambulate 150 Feet: Standby Assistance Ambulation Assistive Devices: Cane Transfers Ability Ability to Transfer In/Out of Chair: Independent Exam Const: General: comfortable and no acute distress HENMT: General nose exam: Normal nares present Mouth: Yes moist mucous membranes Other: the craniotomy side bifrontal area is clean and healthy Eyes: General: appearance normal, both eyes and all related structures Neck: Neck: supple and no JVD Resp: Effort & Inspection: normal respiratory effort Auscultation: clear to auscultation bilaterally Cardio: Rate: regular rate Rhythm: regular rhythm GI: GI Palp: Yes Soft to palpation Auscultation: normal bowel sounds Skin: General skin exam: normal color and no rashes or lesions noted Neuro: Other: patient is well oriented time present person is speech and language functions are normal cranial examination is normal left-sided weakness has significantly improved and he is ambulating much better with little assistance Extrem: General: normal to inspection Psych: Mental Status: mental status grossly normal Objective Data Vital Signs Vital Signs: Vital Signs - 24 hr 08/04/19 14:00 08/04/19 21:29 08/05/19 06:00 Temperature 36.1 C L 36.1 C L 36.2 C L Pulse Rate 82 67 72 Respiratory Rate 17 20 20 Blood Pressure 111/55 L 110/56 L 130/63 Pulse Oximetry 99 99 100 08/05/19 08:00 Temperature Pulse Rate 72 Respiratory Rate 20 Blood Pressure Pulse Oximetry 100 Intake/Output Intake/Output: Intake & Output 08/02/19 08/03/19 08/04/19 08/05/19 23:59 23:59 23:59 23:59 Intake Total 451 565 5345 240 Balance 132 515 0050 240 Meds/Results Medications: Active Medications Generic Name Dose Route Start Last Admin Trade Name Freq PRN Reason Stop Dose Admin Acetaminophen 650 mg 07/28/19 18:04 08/05/19 06:32 Tylenol Tablet PO 650 mg PRN PRN Administration Pain Hydrocodone Bitart/Acetaminophen 1 tab 07/30/19 01:53 08/04/19 22:29 [place] 5-325 Mg PO 1 tab Q4H PRN Administration Pain Rated 4-6 Bisacodyl 10 mg 07/28/19 18:04 Dulcolax Tab PO DAILY PRN Constipation Bisacodyl 10 mg 07/28/19 18:04 Dulcolax Suppository RECTAL DAILY PRN Constipation Dexamethasone 2 mg 08/04/19 09:00 08/05/19 09:00 Dexamethasone Po PO 08/06/19 09:01 2 mg Q24H LINDA Administration Dexamethasone 1 mg 08/07/19 09:00 Dexamethasone Po PO 08/09/19 09:01 DAILY LINDA Dextrose 12.5 gm 07/28/19 18:03 Dextrose 50% Syringe IV PUSH PRN PRN Hypoglycemia Protocol Docusate Sodium 100 mg 07/28/19 17:00 08/05/19 09:00 Colace Capsule PO 100 mg BID LINDA Administration Famotidine 20 mg 07/28/19 21:00 08/05/19 09:00 Pepcid PO 20 mg Q12HR LINDA Administration Gabapentin 100 mg 07/28/19 17:00 08/05/19 09:01 Neurontin PO 100 mg TID LINDA Administration Glucagon 1 mg 07/28/19 18:03 Glucagon For Inj IM PRN PRN Hypoglycemia Protocol Glucose 15 gm 07/28/19 18:03 Glutose 15 PO PRN PRN Hypoglycemia Protocol
[2019-08-05 11:39] LABS: Glucose Point of Care 92 (65-105)
--- NOTE | 2019-08-05 12:51 | PCDIET ---
Nutrition Follow-Up Complete: Nutrition Diagnosis: Altered nutrition related labs related to diabetes mellitus as evidenced by HgbA1C of 7.5%. Nutrition Goal: Patient to consume 75% of meals or greater Goal met. Patient consuming 100% of most meals on diabetic, carbohydrate controlled diet which is appropriate. Last recorded weight is 81.7 kg. Recommend obtaining new weight. Bowel Motility: Last documented bowel movement on 08/03/19. Labs Reviewed: Glu (200), Na (131) Meds Noted: Dexamethasone, Colace, Novolog, Glucophage, Miralax Additional Notes: Head incision well approximated with no other skin issues documented. Will continue to monitor with same goal. Nutrition Monitoring and Evaluation: Follow up every 7 days.
[2019-08-05 14:00] VITALS: BP 85/54; PULSE 80; RESP 18; TEMP 36.3; O2SAT 98
[2019-08-05 16:58] LABS: Glucose Point of Care 144 (65-105)
[2019-08-05] MEDS: metFORMIN HCL 500 MG TABLET 1000 MG PO (17:02)
[2019-08-05 20:53] LABS: Glucose Point of Care 155 (65-105)
[2019-08-05 22:00] VITALS: BP 98/62; PULSE 71; RESP 20; TEMP 36.4; O2SAT 99
[2019-08-06 06:00] VITALS: BP 145/52; PULSE 71; RESP 20; TEMP 36.3; O2SAT 100
[2019-08-06 07:10] LABS: Glucose Point of Care 125 (65-105)
[2019-08-06] MEDS: GABAPENTIN 100 MG CAPSULE PO ×2 (08:31→12:57)
[2019-08-06] MEDS: FAMOTIDINE 20 MG TABLET PO (08:31)
[2019-08-06] MEDS: metFORMIN HCL 500 MG TABLET 1000 MG PO (08:31)
[2019-08-06] MEDS: DEXAMETHASONE 2 MG TABLET PO (08:32)
[2019-08-06] MEDS: SPIRONOLACTONE 25 MG TABLET PO (08:32)
[2019-08-06] MEDS: levETIRAcetam 500 MG TABLET 1000 MG PO (08:32)
[2019-08-06] MEDS: lisinopriL 20 MG TABLET PO (08:32)
[2019-08-06] MEDS: ROSUVASTATIN 5 MG TABLET PO (08:33)
[2019-08-06 08:37] VITALS: BP 112/85; PULSE 76
--- NOTE | 2019-08-06 11:12 | WPDNEURORHBP ---
Subjective Date/time seen: 08/06/19 11:12 Interval history: This 69-year-old gentleman is here after having had bifrontal craniotomy for rather large mass for which final pathology is pending and his going to have a follow-up with the appropriate physicians he denies any headache nausea vomiting chest pain or shortness of breath is sugars are better controlled with the higher dose of metformin and have discontinued his insulin he will be discharged today to be instructed to have follow-up with the primary care physician neurosurgeon and also other physicians involved with his care Review of Systems Review of Systems: All systems reviewed & are unremarkable except as noted in HPI and below Functional Status Ambulation Ability Ability to Ambulate 10 Feet: Independent Ability to Ambulate 50 Feet With 2 Turns: Independent Ability to Ambulate 150 Feet: Independent Ambulation Assistive Devices: Cane Transfers Ability Ability to Transfer In/Out of Chair: Independent Exam Const: General: comfortable and no acute distress HENMT: General nose exam: Normal nares present Mouth: Yes moist mucous membranes Other: the site of bifrontal craniotomy is clean and healthy and Steri-Stripped without any discharge or any evidence of infection Eyes: General: appearance normal, both eyes and all related structures Neck: Neck: supple and no JVD Resp: Effort & Inspection: normal respiratory effort Auscultation: clear to auscultation bilaterally Cardio: Rate: regular rate Rhythm: regular rhythm GI: GI Palp: Yes Soft to palpation Auscultation: normal bowel sounds Skin: General skin exam: normal color and no rashes or lesions noted Neuro: Other: patient is awake and alert well oriented time place and person is speech language functions are normal his left-sided weakness and generalized weakness has significantly improved and he has achieved the goals of over rehab Extrem: General: normal to inspection Psych: Mental Status: mental status grossly normal Objective Data Vital Signs Vital Signs: Vital Signs - 24 hr 08/05/19 14:00 08/05/19 22:00 08/06/19 06:00 Temperature 36.3 C L 36.4 C L 36.3 C L Pulse Rate 80 71 71 Respiratory Rate 18 20 20 Blood Pressure 85/54 L 98/62 L 145/52 H Pulse Oximetry 98 99 100 08/06/19 08:37 Temperature Pulse Rate 76 Respiratory Rate Blood Pressure 112/85 Pulse Oximetry Intake/Output Intake/Output: Intake & Output 08/03/19 08/04/19 08/05/19 08/06/19 23:59 23:59 23:59 23:59 Intake Total 720 1200 600 240 Balance 720 1200 600 240 Meds/Results Medications: Active Medications Generic Name Dose Route Start Last Admin Trade Name Blayne PRN Reason Stop Dose Admin Acetaminophen 650 mg 07/28/19 18:04 08/05/19 22:17 Tylenol Tablet PO 650 mg PRN PRN Administration Pain Hydrocodone Bitart/Acetaminophen 1 tab 07/30/19 01:53 08/06/19 03:51 [place] 5-325 Mg PO 1 tab Q4H PRN Administration Pain Rated 4-6 Bisacodyl 10 mg 07/28/19 18:04 Dulcolax Tab PO DAILY PRN Constipation Bisacodyl 10 mg 07/28/19 18:04 Dulcolax Suppository RECTAL DAILY PRN Constipation Dexamethasone 1 mg 08/07/19 09:00 Dexamethasone Po PO 08/09/19 09:01 DAILY LINDA Dextrose 12.5 gm 07/28/19 18:03 Dextrose 50% Syringe IV PUSH PRN PRN Hypoglycemia Protocol Docusate Sodium 100 mg 07/28/19 17:00 08/06/19 10:19 Colace Capsule PO Not Given BID LINDA Famotidine 20 mg 07/28/19 21:00 08/06/19 08:31 Pepcid PO 20 mg Q12HR LINDA Administration Gabapentin 100 mg 07/28/19 17:00 08/06/19 08:31 Neurontin PO 100 mg TID LINDA Administration Glucagon 1 mg 07/28/19 18:03 Glucagon For Inj IM PRN PRN Hypoglycemia Protocol Glucose 15 gm 07/28/19 18:03 Glutose 15 PO PRN PRN Hypoglycemia Protocol Dextrose 1,000 mls @ 100 mls/hr 07/28/19 18:03 Dextrose 5% 1,000 Ml IVPB
[2019-08-06 12:05] LABS: Glucose Point of Care 111 (65-105)
--- NOTE | 2019-08-07 16:04 | PM.DS ---
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 Status: Acute DS: Summary Hospital Course Reason for hospitalization: this pleasant 69-year-old gentleman was admitted after having had bifrontal craniotomy for a brain mass and had a left-sided hemiparesis he did remarkably well and was able to achieve over rehab well and was able to be discharged home with outpatient physical therapy and occupational therapy no falls were recorded Hospital Course: at the time of discharge his quality improvement measures were as follows eating independent, oral hygiene independent, toileting independent, bathing independent, upper bodyDressing independent, lower body dressing independent, footwear independent, or rolling in bed independent, sitting to line independent, lying to sitting independent, sit to stand independent, cough chair transfers independent, 12 transfers independent, car transfers sit up, walking 10 feet independent, walking 50 feet with 2 turns independent, walking 150 feet supervision, walking 10 feet uneven surfaces supervision, curves are steps supervision for staff supervision, 12 staff supervision, picking about objects supervision, wheelchair not applicable patient was recommended to have outpatient therapy no falls were recorded Time Spent with Patient Time attestation: Total time spent providing and/or coordinating discharge services: Exam Const: General: comfortable and no acute distress HENMT: General nose exam: Normal nares present Mouth: Yes dry mucous membranes Other: the incision from the bifrontal craniotomy was clean and healthy Eyes: General: appearance normal, both eyes and all related structures Neck: Neck: supple and no JVD Resp: Effort & Inspection: normal respiratory effort Auscultation: clear to auscultation bilaterally Cardio: Rate: regular rate Rhythm: regular rhythm GI: GI Palp: Yes Soft to palpation Auscultation: normal bowel sounds Skin: General skin exam: normal color and no rashes or lesions noted Neuro: Other: patient was awake and alert well oriented time present person is speech and language functions are normal if he did have any hemiparesis which has completely resolved he was walking almost independently and doing fairly well remarkably well Extrem: General: normal to inspection Psych: Mental Status: mental status grossly normal DS: Data Data Completed and Pending Completed studies during hospitalization: on August 05, 2019 the patient's white count was 7300, hemoglobin 11.5 and hematocrit 35.8, and MCV of 82.1 and platelet count of 193120 The chemistries on the same day revealed sodium 131 potassium 4.2 a BUN of 19 creatinine 1.0 and the sugar was 200 the patient sugars mainly stayed in 100s range with the increase in the metformin Discharge Plan Discharge Attending physician on discharge: [place] Vogel Discharging Clinician: [place] Vogel Anticipated Discharge Date/Time: 08/06/19 11:16 Patient Disposition: Home, Self-Care Activity: may shower and no driving Diet: diabetic Wound Care Instructions: incision open to air Discharge Instructions: keep steri-strips intact, they will fall off when dried, keep wound clean and dry Patient Instructions: Antibiotic Form Stand Alone Forms: General Discharge Information Follow-up/Referrals: Red Cadena MD [Other] (Call
== END 2019-08-06 13:26 | disposition home or self-care (01) | DRG 949 ==
PROVIDERS: Admitting Provider Psychiatry & Neurology Neurology; Visit Provider Psychiatry & Neurology Neurology
DX: Z48.811 Encounter for surgical aftercare following surgery on the nervous system (principal); G81.94 Hemiplegia, unspecified affecting left nondominant side; D49.6 Neoplasm of unspecified behavior of brain; E78.5 Hyperlipidemia, unspecified; E11.9 Type 2 diabetes mellitus without complications; I10 Essential (primary) hypertension; Z87.891 Personal history of nicotine dependence; Z79.84 Long term (current) use of oral hypoglycemic drugs
CPT/HCPCS: 36415; 80048; 83036; 85025; 87081; 96125; 97110; 97112; 97116; 97162; 97166; 97530; 97535; A9270; J1644; J1815; J8540